=== PATIENT | male | born 1955 | race African-American/Black ===

== ENCOUNTER 2017-07-05 14:36 | Observation (INO) | payer OTHER ==
[~2017-07-05] VITALS: Ht 193 cm; Wt 68.1 kg
[~2017-07-05 14:36] MED LIST: ALBUTEROL SULF8.5 GM IH; AMLODIPINE BESY10 MG; AMLODIPINE BESY10 MG PO; AMLODIPINE BESYL5 MG PO; AMOXICILLIN500 M1 PO; ANAPROX DS550 M1 PO; ASPIRIN81 M1 PO; Aspirin E.C. PO; CATAPRES0.2 MG PO; CELEXA20 MG PO; CITALOPRAM HBR20 M1 PO; CITALOPRAM HBR20 MG PO; CLONIDINE HCL0.2 MG PO; HYDROCHLOROTH12.5 M3 PO; HYDROCHLOROTHIA25 MG PO; HYDROCHLORTHIAZIDE; K-DUR20 MEQ PO; LEXAPRO; LISINOPRIL; LISINOPRIL20 MG PO; LOPRESSOR100 M1 PO; MOTRIN800 MG PO; MUCINEX D ER T1 EAC1 PO; NITROSTAT0.4 MG SL; NO HOME MEDS; PEN-VEE K,VEET500 MG PO; PRAVASTATIN; PRILOSEC40 MG PO; ROBITUSSIN100 MG/5 M PO; TESSALON PERLE100 MG PO; THERAGRAN1 TABLET PO; TYLENOL REGULA325 MG PO; ULTRAM50 MG PO; ZESTRIL,PRINIVI20 MG
[2017-07-05 15:20] LABS: HEMATOCRIT 43.6 % (38.0-50.0); MCHC 32.1 G/DL (30.0-36.0); MEAN PLAT.VOLUME 10.8 uM^3 (9.0-12.4); PLATELET COUNT 213 K/uL (156-360); RBC DIS.WIDTH-CV 13.1 % (11.8-14.6); RBC DIS.WIDTH-SD 39.9 % (39-53); RED BLOOD COUNT 5.19 M/uL (4.00-5.50); WHITE BLOOD COUNT 6.1 K/uL (4.1-10.2)
[2017-07-05 15:28] LABS: CHLORIDE 105 mEq/L (99-109); POTASSIUM 3.3 mEq/L (3.7-5.4); SODIUM 136 mEq/L (136-147)
[2017-07-05 15:31] LABS: GLUCOSE 148 mg/dL (70-99)
[2017-07-05 15:32] LABS: ANION GAP 8 MEQ/L (2-14)
[2017-07-05 15:33] LABS: TOTAL BILIRUBIN 0.5 mg/dL (0.0-1.0)
[2017-07-05 15:34] LABS: ALKALINE PHOSPHATASE 139 IU/L (3-129); GFR ESTIMATE (CALCULATED) > 59 mL/min/
[2017-07-05 15:36] LABS: UREA NITROGEN (BUN) 21 mg/dL (9-23)
[2017-07-05 15:41] LABS: TROP-I INTERPRETATION NEGATIVE; TROPONIN-I < 0.01 ng/mL (0.0-0.30)
[2017-07-05 18:22] VITALS: BP 168/115
[2017-07-05 20:07] VITALS: BP 154/110
[2017-07-05 21:09] LABS: TROP-I INTERPRETATION NEGATIVE; TROPONIN-I 0.01 ng/mL (0.0-0.30)
[2017-07-05 23:26] VITALS: BP 166/104
[2017-07-06 02:51] LABS: HEMATOCRIT 42.3 % (38.0-50.0); MCHC 32.4 G/DL (30.0-36.0); MCV 83.4 FL (86-99); MEAN PLAT.VOLUME 11.1 uM^3 (9.0-12.4); PLATELET COUNT 198 K/uL (156-360); RBC DIS.WIDTH-SD 39.3 % (39-53); RED BLOOD COUNT 5.07 M/uL (4.00-5.50); WHITE BLOOD COUNT 5.7 K/uL (4.1-10.2)
[2017-07-06 03:08] LABS: CHLORIDE 105 mEq/L (99-109); SODIUM 136 mEq/L (136-147)
[2017-07-06 03:11] LABS: ANION GAP 9 MEQ/L (2-14)
[2017-07-06 03:12] LABS: TROP-I INTERPRETATION NEGATIVE; TROPONIN-I < 0.01 ng/mL (0.0-0.30)
[2017-07-06 03:13] LABS: GFR ESTIMATE (CALCULATED) > 59 mL/min/
[2017-07-06 03:14] LABS: UREA NITROGEN (BUN) 22 mg/dL (9-23)
[2017-07-06 03:15] LABS: GLUCOSE 107 mg/dL (70-99); POTASSIUM 4.4 mEq/L (3.7-5.4)
[2017-07-06 03:30] VITALS: BP 154/98
[2017-07-06 04:03] LABS: HDL CHOLESTEROL 42 MG/DL (Desirable>=40); LDL CHOLESTEROL 79 mg/dL (Desirable<100); NON-HDL CHOLESTEROL 92 mg/dL (Desirable<160); SAMPLE HEMOLYSIS CHECK 0; SAMPLE ICTERIC CHECK 0; SAMPLE LIPEMIA CHECK 0; TOTAL CHOLESTEROL 134 mg/dL (Desirable<200); TRIGLYCERIDES 63 MG/DL (Normal: <150)
[2017-07-06] MEDS ORDERED: ATORVASTATIN CA40 MG PO (09:01)
[2017-07-06] MEDS ORDERED: ASPIR-LOW81 MG PO (09:02)
[2017-07-06] MEDS ORDERED: CARVEDILOL12.5 MG PO (09:02)
[2017-07-06] MEDS ORDERED: AMLODIPINE BESY10 MG PO (09:02)
[2017-07-06] MEDS ORDERED: K-DUR20 MEQ PO (09:03)
[2017-07-06 09:14] VITALS: BP 154/95
== END 2017-07-06 10:56 | disposition home or self-care (01) ==
LOC: EME 14:36 → EDOF 16:10 → 5WEST 16:10 → ENRESERV 16:11 → 5WEST 18:09 → ENPENDDIS 07-06 → 5WEST 07-06 10:56
PROVIDERS: Emergency Medicine; Hospitalist
DX: R07.9 Chest pain, unspecified (principal); I10 Essential (primary) hypertension; I25.2 Old myocardial infarction; F17.200 Nicotine dependence, unspecified, uncomplicated; I25.10 Atherosclerotic heart disease of native coronary artery without angina pectoris; E78.5 Hyperlipidemia, unspecified; T46.5X6A Underdosing of other antihypertensive drugs, initial encounter; Z91.128 Patient's intentional underdosing of medication regimen for other reason; Z91.19 Patient's noncompliance with other medical treatment and regimen; E87.6 Hypokalemia; Z88.8 Allergy status to other drugs, medicaments and biological substances
CPT/HCPCS: 71010; 80048; 80053; 80061; 84484; 85027; 93005; 99281; 99285; G0378; J1650

== ENCOUNTER 2017-08-08 11:41 | Emergency (ER) | payer MEDICARE ==
[~2017-08-08] VITALS: Ht 193 cm; Wt 67.8 kg
[~2017-08-08 11:41] MED LIST changes: +ASPIR-LOW81 MG PO; +ATORVASTATIN CA40 MG PO; +CARVEDILOL12.5 MG PO
[2017-08-08 12:51] LABS: HEMATOCRIT 46.5 % (38.0-50.0); HEMOGLOBIN 15.1 G/DL (12.5-16.6); MCH 26.9 PG (29.0-34.0); MCHC 32.5 G/DL (30.0-36.0); MCV 82.9 FL (86-99); PLATELET COUNT 205 K/uL (156-360); RBC DIS.WIDTH-SD 41.8 % (39-53); RED BLOOD COUNT 5.61 M/uL (4.00-5.50); WHITE BLOOD COUNT 8.7 K/uL (4.1-10.2)
[2017-08-08 13:00] LABS: CHLORIDE 105 mEq/L (99-109); POTASSIUM 4.7 mEq/L (3.7-5.4); SODIUM 139 mEq/L (136-147)
[2017-08-08 13:02] LABS: GLUCOSE 88 mg/dL (70-99)
[2017-08-08 13:06] LABS: CREATININE 1.1 mg/dL (0.6-1.3); GFR ESTIMATE (CALCULATED) > 59 mL/min/ (58.99-99999); UREA NITROGEN (BUN) 21 mg/dL (9-23)
[2017-08-08 13:09] LABS: TROP-I INTERPRETATION NEGATIVE; TROPONIN-I < 0.01 ng/mL (0.0-0.30)
[2017-08-08] MEDS ORDERED: ASPIRIN81 M2 PO (15:28)
[2017-08-08] MEDS ORDERED: NORVASC10 MG PO (15:28)
[2017-08-08] MEDS ORDERED: COREG12.5 M1 PO (15:28)
[2017-08-08 15:40] VITALS: BP 152/106
== END 2017-08-08 15:41 | disposition home or self-care (01) ==
LOC: RME 11:41 → EME 11:41 → RME 15:41
DX: R07.89 Other chest pain (principal); I10 Essential (primary) hypertension; I25.10 Atherosclerotic heart disease of native coronary artery without angina pectoris; E78.5 Hyperlipidemia, unspecified; I25.2 Old myocardial infarction; F32.9 Major depressive disorder, single episode, unspecified; F17.200 Nicotine dependence, unspecified, uncomplicated; Z88.8 Allergy status to other drugs, medicaments and biological substances
CPT/HCPCS: 71020; 80048; 84484; 85027; 93005; 99281; 99283

== ENCOUNTER 2017-08-15 18:12 | Emergency (ER) | payer SELFPAY ==
[~2017-08-15] VITALS: Ht 193 cm; Wt 63.5 kg
[~2017-08-15 18:12] MED LIST changes: +ASPIRIN81 M2 PO; +COREG12.5 M1 PO; +NORVASC10 MG PO
[2017-08-15 19:33] LABS: ALBUMIN 3.5 g/dL (3.2-4.8)
[2017-08-15 19:34] LABS: CHLORIDE 106 mEq/L (99-109); POTASSIUM 4.2 mEq/L (3.7-5.4); SODIUM 140 mEq/L (136-147)
[2017-08-15 19:36] LABS: GLUCOSE 117 mg/dL (70-99); TOTAL PROTEIN 7.3 g/dL (6.4-8.3)
[2017-08-15 19:38] LABS: TOTAL BILIRUBIN 0.3 mg/dL (0.0-1.0)
[2017-08-15 19:39] LABS: ALKALINE PHOSPHATASE 117 IU/L (3-129)
[2017-08-15 19:40] LABS: CREATININE 1.6 mg/dL (0.6-1.3); GFR ESTIMATE (CALCULATED) 57 mL/min/ (58.99-99999)
[2017-08-15 19:41] LABS: AST (GOT) 16 IU/L (2-34); UREA NITROGEN (BUN) 32 mg/dL (9-23)
[2017-08-15 19:43] LABS: ALT (GPT) 13 IU/L (3-49)
[2017-08-15 19:45] LABS: HEMATOCRIT 39.7 % (38.0-50.0); HEMOGLOBIN 13.3 G/DL (12.5-16.6); MCH 27.1 PG (29.0-34.0); MCHC 33.5 G/DL (30.0-36.0); MCV 80.9 FL (86-99); PLATELET COUNT 158 K/uL (156-360); RBC DIS.WIDTH-SD 41.2 % (39-53); RED BLOOD COUNT 4.91 M/uL (4.00-5.50); WHITE BLOOD COUNT 6.8 K/uL (4.1-10.2)
[2017-08-15 22:02] VITALS: BP 148/83
== END 2017-08-15 22:02 | disposition home or self-care (01) ==
LOC: EME 18:12
PROVIDERS: Emergency Medicine
DX: K52.9 Noninfective gastroenteritis and colitis, unspecified (principal); R42 Dizziness and giddiness; I10 Essential (primary) hypertension; E78.5 Hyperlipidemia, unspecified; Z79.82 Long term (current) use of aspirin; F17.200 Nicotine dependence, unspecified, uncomplicated
CPT/HCPCS: 80053; 85027; 85027 GA; 99281; 99285; J2405; J7030

== ENCOUNTER → 2017-10-09 | Outpatient (CLI) | payer OTHER, MEDICARE | END | disposition home or self-care (01) | LOC: EKG 10:41 | DX: I05.1 Rheumatic mitral insufficiency (principal); I07.1 Rheumatic tricuspid insufficiency; I70.0 Atherosclerosis of aorta; I06.1 Rheumatic aortic insufficiency; I09.89 Other specified rheumatic heart diseases | CPT/HCPCS: 93306 ==

== ENCOUNTER 2018-01-27 13:18 | Observation (INO) | payer OTHER ==
[~2018-01-27] VITALS: Ht 193 cm; Wt 70.0 kg
[2018-01-27 13:48] LABS: BASOPHIL (%) 0.5 % (0-1); EOSINOPHIL (%) 2.6 % (0-5); EOSINOPHIL COUNT 0.2 K/uL (0-0.3); HEMATOCRIT 39.3 % (38.0-50.0); HEMOGLOBIN 13.1 G/DL (12.5-16.6); IMMATURE GRANULOCYTE (%) 0.6 % (0.0-0.7); LYMPHOCYTE (%) 26.9 % (15-42); LYMPHOCYTE COUNT 1.7 K/uL (1.0-2.8); MCH 27.1 PG (29.0-34.0); MCHC 33.3 G/DL (30.0-36.0); MCV 81.4 FL (86-99); MONOCYTE COUNT 0.6 K/uL (0-0.8); NEUTROPHIL (%) 60.4 % (45-76); NEUTROPHIL COUNT 3.7 K/uL (1.8-6.4); PLATELET COUNT 209 K/uL (156-360); RBC DIS.WIDTH-CV 13.6 % (11.8-14.6); RBC DIS.WIDTH-SD 40.1 % (39-53); RED BLOOD COUNT 4.83 M/uL (4.00-5.50); WHITE BLOOD COUNT 6.2 K/uL (4.1-10.2)
[2018-01-27 13:53] LABS: INTER. NORMALIZED RATIO 1.2
[2018-01-27 13:55] LABS: PTT 36.8 SEC (25-37)
[2018-01-27 13:57] LABS: AMYLASE 71 IU/L (1-118); CHLORIDE 107 mEq/L (99-109); POTASSIUM 3.9 mEq/L (3.7-5.4); SODIUM 142 mEq/L (136-147)
[2018-01-27 13:59] LABS: GLUCOSE 91 mg/dL (70-99)
[2018-01-27 14:02] LABS: SERUM ETHYL ALCOHOL < 10 mg/dL
[2018-01-27 14:03] LABS: GFR ESTIMATE (CALCULATED) > 59 mL/min/ (58.99-99999); UREA NITROGEN (BUN) 17 mg/dL (9-23)
[2018-01-27 14:06] LABS: LIPASE 11 U/L (1.0-51.0)
[2018-01-27 14:08] LABS: TROP-I INTERPRETATION NEGATIVE; TROPONIN-I 0.01 ng/mL (0.0-0.30)
[2018-01-27 15:46] LABS: APPEARANCE CLEAR ((CLEAR)); BILIRUBIN NEGATIVE; BLOOD SMALL; COLOR YELLOW ((YELLOW)); GLUCOSE (STRIP) NEGATIVE; KETONES NEGATIVE; LEUKOCYTES NEGATIVE; NITRITE NEGATIVE; PROTEIN (STRIP) NEGATIVE; SPECIFIC GRAVITY 1.015 (1.000-1.030); UROBILINOGEN 0.2 MG/DL (0.2-1.0)
[2018-01-27 15:51] LABS: BACTERIA NONE SEEN /HPF; EPITHELIAL CELLS NONE SEEN /HPF; HYALINE CASTS 0-5 /LPF; MUCUS TRACE /LPF; UCUL ADDED? NO; WHITE BLOOD CELLS 0-5 /HPF (0-5)
[2018-01-27 15:57] LABS: AMPHETAMINE NEGATIVE (500 ng/mL); BARBITURATES NEGATIVE (200 ng/mL); BENZODIAZEPINES NEGATIVE (150 ng/mL); BUPRENORPHINE NEGATIVE (10 ng/mL); COCAINE NEGATIVE (150 ng/mL); METHADONE NEGATIVE (200 ng/mL); METHAMPHETAMINE NEGATIVE (500 ng/mL); OPIATES (MORPHINE) NEGATIVE (100 ng/mL); OXYCODONE NEGATIVE (100 ng/mL); PHENCYCLIDINE NEGATIVE (25 ng/mL); PROPOXYPHENE NEGATIVE (300 ng/mL); THC CANNABINOIDS PRESUMPTIVE POSITIVE (50 ng/mL); TRICYCLIC ANTIDEPRESSANTS NEGATIVE (300 ng/mL)
[2018-01-27] MEDS ORDERED: ATORVASTATIN CA40 MG PO (16:46)
[2018-01-27] MEDS ORDERED: LO-DOSE ASPIRIN81 M1 PO (16:47)
[2018-01-27] MEDS ORDERED: CARVEDILOL12.5 MG PO (16:47)
[2018-01-27] MEDS ORDERED: TRAZODONE HCL50 MG PO (16:48)
[2018-01-27] MEDS ORDERED: AMLODIPINE-VAL1 EAC1 PO (16:48)
[2018-01-27] MEDS ORDERED: POTASSIUM CHLO20 ME2 PO (16:48)
[2018-01-27 18:21] VITALS: BP 170/100
[2018-01-27 20:00] VITALS: BP 166/98
[2018-01-27 20:06] LABS: TROP-I INTERPRETATION NEGATIVE; TROPONIN-I 0.02 ng/mL (0.0-0.30)
[2018-01-27 23:39] VITALS: BP 153/101
[2018-01-28] VITALS (7 sets, daily range): BP systolic 130–166; BP diastolic 86–100
[2018-01-28 02:05] LABS: HEMATOCRIT 37.4 % (38.0-50.0); HEMOGLOBIN 12.6 G/DL (12.5-16.6); MCH 27.3 PG (29.0-34.0); MCHC 33.7 G/DL (30.0-36.0); MCV 81.1 FL (86-99); PLATELET COUNT 198 K/uL (156-360); RBC DIS.WIDTH-CV 13.5 % (11.8-14.6); RBC DIS.WIDTH-SD 39.9 % (39-53); RED BLOOD COUNT 4.61 M/uL (4.00-5.50); WHITE BLOOD COUNT 6.5 K/uL (4.1-10.2)
[2018-01-28 02:15] LABS: CHLORIDE 104 mEq/L (99-109); POTASSIUM 3.3 mEq/L (3.7-5.4); SODIUM 140 mEq/L (136-147)
[2018-01-28 02:16] LABS: GLUCOSE 88 mg/dL (70-99)
[2018-01-28 02:20] LABS: GFR ESTIMATE (CALCULATED) > 59 mL/min/ (58.99-99999)
[2018-01-28 02:21] LABS: UREA NITROGEN (BUN) 21 mg/dL (9-23)
[2018-01-28 02:27] LABS: TROP-I INTERPRETATION NEGATIVE; TROPONIN-I 0.02 ng/mL (0.0-0.30)
[2018-01-28 08:18] LABS: MAGNESIUM 1.8 mg/dL (1.3-2.7)
== END 2018-01-28 16:56 | disposition home or self-care (01) ==
LOC: EME 13:18 → EDOF 15:58 → 4SOUTH 15:58 → ENRESERV 16:00 → 4SOUTH 17:37
PROVIDERS: Emergency Medicine; Student in an Organized Health Care Education/Training Program
DX: R55 Syncope and collapse (principal); R07.89 Other chest pain; I10 Essential (primary) hypertension; I25.10 Atherosclerotic heart disease of native coronary artery without angina pectoris; I25.2 Old myocardial infarction; F17.200 Nicotine dependence, unspecified, uncomplicated; F12.90 Cannabis use, unspecified, uncomplicated; J44.9 Chronic obstructive pulmonary disease, unspecified; Z79.82 Long term (current) use of aspirin; Z91.19 Patient's noncompliance with other medical treatment and regimen; Z88.8 Allergy status to other drugs, medicaments and biological substances
CPT/HCPCS: 70450; 70551; 71046; 80047; 80048; 81003; 82150; 83605; 83690; 83735; 84484; 84999; 85025; 85027; 85610; 85730; 86850; 86900; 86901; 93005; 93306; 93880; 95819; 99281; 99285; G0378; G0480